=== PATIENT | female | born 1960 | race Caucasian/White ===

== ENCOUNTER 2019-06-30 18:00 | Emergency (ER) | payer BC ==
[2019-06-30] MEDS ORDERED: Acetaminophen 500 MG Tab PO ONE (18:29)
[2019-06-30 18:35] VITALS: BP 170/81; PULSE 71
--- NOTE | 2019-06-30 18:35 | EDM.PDOC ---
ED HPI GENERAL MEDICAL PROBLEM - General Chief Complaint: Upper Extremity Injury/Pain Stated Complaint: LEFT ARM INJURY Time Seen by Provider: 06/30/19 18:25 Source of Information: Reports: Patient, Old Records History Limitations: Reports: No Limitations - History of Present Illness INITIAL COMMENTS - FREE TEXT/NARRATIVE: 58 yo female fell just before arrival in her home and hit her L lateral forearm on an open cupboard door. Has pain at the site of impact. Here for eval. No tx prior to arrival. No other injuries. Onset: Today Onset Date: 06/30/19 Onset Time: 17:30 Duration: Hour(s): (1), Constant Location: Reports: Upper Extremity, Left Quality: Reports: Dull Severity: Mild Improves with: Reports: Rest Worsens with: Reports: Movement Context: Reports: Trauma Associated Symptoms: Reports: No Other Symptoms Treatments [employer] ASSOCIATE: Reports: Other (see below) (none) - Related Data Allergies Allergy/AdvReac Type Severity Reaction Status Date / Time diphenhydramine HCl Allergy Swelling Verified 06/30/19 18:27 [From Benadryl] Home Meds: Home Meds Aspirin [Ecotrin EC] 81 mg PO DAILY 01/08/16 [History] Citalopram [Citalopram HBr] 20 mg PO DAILY 01/08/16 [History] Past Medical History HEENT History: Reports: Other (See Below) Other HEENT History: Very bad dentation Cardiovascular History: Reports: Hypertension Musculoskeletal History: Reports: Other (See Below) Other Musculoskeletal History: carpal tunnel bilateral, no surgery yet Psychiatric History: Reports: Depression - Past Surgical History HEENT Surgical History: Reports: Eye Surgery Review of Systems - Review of Systems Review Of Systems: See Below Constitutional: Reports: No Symptoms Skin: Reports: Bruising (L lateral forearm) Neurological: Reports: No Symptoms ED EXAM, GENERAL - Physical Exam Exam: See Below Exam Limited By: No Limitations General Appearance: Alert, WD/WN, No Apparent Distress Extremities: Arm Pain (at site of impact, mid forearm, left) Neurological: Alert, Oriented, CN II-XII Intact, Normal Cognition, No Motor/ Sensory Deficits Psychiatric: Normal Affect, Normal Mood Skin Exam: Warm, Dry, Intact, No Rash, Ecchymosis (small area L mid forearm, laterally) Course - Vital Signs Last Recorded V/S: Last Vital Signs Temp 36.3 C 06/30/19 18:32 Pulse 71 06/30/19 18:32 Resp 14 06/30/19 18:32 BP 170/81 H 06/30/19 18:32 Pulse Ox 98 06/30/19 18:32 - Orders/Labs/Meds Orders: Active Orders 24 hr Category Date Time Status Forearm 2V Lt [CR] Stat Exams 06/30/19 18:29 Ordered Meds: Medications Discontinued Medications Generic Name Dose Route Start Last Admin Trade Name Ximena PRN Reason Stop Dose Admin Acetaminophen 1,000 mg 06/30/19 18:29 06/30/19 18:38 Tylenol Extra Strength PO 06/30/19 18:30 1,000 mg ONETIME ONE Administration - Radiology Interpretation Free Text/Narrative:: L forearm X-ray-neg Departure - Departure Time of Disposition: 18:45 Disposition: Home, Self-Care 01 Condition: Good Clinical Impression: Contusion of forearm, left Qualifiers: Encounter type: initial encounter Qualified Code(s): S50.12XA - Contusion of left forearm, initial encounter - Discharge Information *PRESCRIPTION DRUG MONITORING PROGRAM REVIEWED*: No *COPY OF PRESCRIPTION DRUG MONITORING REPORT IN PATIENT HAWK: No Instructions: Contusion, [id number] Referrals: Tasia Hicks PA [Primary Care Provider] - Forms: ED Department Discharge Additional Instructions: Ibuprofen and/or acetaminophen as needed for pain relief. Ice to area tonight. Recheck as needed. - My Orders Last 24 Hours: My Active Orders 06/30/19 18:29 Forearm 2V Lt [CR] Stat - Assessment/Plan Last 24 Hours: My Active Orders 06/30/19 18:29 Forearm 2V Lt [CR] Stat
--- NOTE | 2019-06-30 18:55 | CRLCR ---
Indication: Fell into cupboard at home. Technique: Left forearm 2 views. Comparison: None. Findings: Bones: Osteopenia without evidence of fracture. Joint spaces: Unremarkable. Soft tissues: Mild dorsal soft tissue swelling. Impression: Mild dorsal soft tissue swelling without evidence of fracture. Osteopenia. Dictated by Jerry Owusu MD @ Jun 30 2019 6:51PM Signed by Dr. Jerry Owusu @ Jun 30 2019 6:52PM
== END 2019-06-30 19:18 | disposition home or self-care (01) ==
LOC: JP.ED 18:00
DX: S50.12XA Contusion of left forearm, initial encounter (principal); I10 Essential (primary) hypertension; F41.9 Anxiety disorder, unspecified; Z79.82 Long term (current) use of aspirin; Z79.899 Other long term (current) drug therapy; W01.190A Fall on same level from slipping, tripping and stumbling with subsequent striking against furniture, initial encounter; Y92.009 Unspecified place in unspecified non-institutional (private) residence as the place of occurrence of the external cause
CPT/HCPCS: 73090; 99283; A9270

== ENCOUNTER 2020-08-26 18:29 | Emergency (ER) | payer OTHER ==
[2020-08-26 19:07] VITALS: BP 157/77; PULSE 73
--- NOTE | 2020-08-26 19:11 | EDM.PDOC ---
ED HPI GENERAL MEDICAL PROBLEM - General Chief Complaint: Headache Stated Complaint: COVID SYMPTOMS Time Seen by Provider: 08/26/20 18:43 Source of Information: Reports: Patient History Limitations: Reports: No Limitations - History of Present Illness INITIAL COMMENTS - FREE TEXT/NARRATIVE: Jeannie is a 59-year-old female presenting to the ED for evaluation of Covid-like symptoms including nasal congestion, intermittent loss of taste or smell, headache and body aches. Patient symptoms started about 3 weeks ago and have been intermittent with the headache occurring daily. She reports having some mild nasal congestion but denies any cough, shortness of breath, fever but does have chills, nausea, vomiting, or diarrhea. Patient denies any sore throat as well. There are multiple family members in the same household that have been positive for COVID-19 over the last several days. The patient does take medications for anxiety as well as osteoarthritis. She denies any new medications. - Related Data Allergies Allergy/AdvReac Type Severity Reaction Status Date / Time diphenhydramine HCl Allergy Swelling Verified 06/30/19 18:27 [From Benadryl] Home Meds: Home Meds Aspirin [Ecotrin EC] 81 mg PO DAILY 01/08/16 [History] Citalopram [Citalopram HBr] 20 mg PO DAILY 01/08/16 [History] busPIRone [Buspar] 10 mg PO BID 08/26/20 [History] Past Medical History HEENT History: Reports: Other (See Below) Other HEENT History: Very bad dentation Cardiovascular History: Reports: Hypertension Musculoskeletal History: Reports: Other (See Below) Other Musculoskeletal History: carpal tunnel bilateral, no surgery yet Psychiatric History: Reports: Depression - Past Surgical History HEENT Surgical History: Reports: Eye Surgery ED ROS GENERAL - Review of Systems Review Of Systems: See Below Constitutional: Reports: Chills, Malaise, Fatigue. Denies: Decreased Appetite HEENT: Reports: Other (Intermittent loss of taste and smell. Minor nasal congestion.). Denies: Throat Pain, Throat Swelling Respiratory: Reports: No Symptoms Cardiovascular: Reports: No Symptoms Endocrine: Reports: No Symptoms GI/Abdominal: Reports: No Symptoms. Denies: Abdominal Pain, Diarrhea, Nausea, Vomiting : Reports: No Symptoms Musculoskeletal: Reports: Other (Body aches) Skin: Reports: No Symptoms Neurological: Reports: Headache Psychiatric: Reports: No Symptoms Hematologic/Lymphatic: Reports: No Symptoms Immunologic: Reports: No Symptoms ED EXAM, GENERAL - Physical Exam Exam: See Below Exam Limited By: No Limitations General Appearance: Alert, No Apparent Distress Eye Exam: Bilateral Eye: EOMI, PERRL Throat/Mouth: Normal Inspection, Normal Lips, Normal Oropharynx, Normal Voice, No Airway Compromise. No: Dysphagia, Inflammation Head: Atraumatic, Normocephalic Neck: Normal Inspection, Supple, Non-Tender, Full Range of Motion. No: Lymphadenopathy (R), Lymphadenopathy (L) Respiratory/Chest: No Respiratory Distress, Lungs Clear, Normal Breath Sounds, Chest Non-Tender Cardiovascular: Normal Peripheral Pulses, Regular Rate, Rhythm, No Edema, No Murmur Peripheral Pulses: 2+: Radial (L), Radial (R) GI/Abdominal: Normal Bowel Sounds, Soft, Non-Tender, No Distention Back Exam: Normal Inspection, Full Range of Motion Extremities: Normal Inspection, Normal Range of Motion, No Pedal Edema Neurological: Alert, Oriented, Normal Cognition, No Motor/Sensory Deficits Psychiatric: Normal Affect, Normal Mood Skin Exam: Warm, Dry, Intact, Normal Color, No Rash Lymphatic: No Adenopathy Course - Vital Signs Last Recorded V/S: Last Vital Signs Temp 36.7 C 08/26/20 19:05 Pulse 73 08/26/20 19:05 Resp 16 08/26/20 19:05 BP 157/77 H 08/26/20 19:05 Pulse Ox 96 08/26/20 19:05 - Orders/Labs/Meds Labs: Laboratory Tests 08/26/20 Range/Units 18:43 Influenza Type A RNA Negative (NEGATIVE) Influenza Type B RNA Negative (NEGATIVE) RSV Rapid Negative (NEGATIVE) SARS-CoV-2 RNA (ANDRIY) Positive H (NEGATIVE) Departure - Departure Time of Disposition: 20:43 Disposition: Home, Self-Care 01 Condition: Good Clinical Impression: COVID-19 - Discharge Information *PRESCRIPTION DRUG MONITORING PROGRAM REVIEWED*: Not Applicable *COPY OF PRESCRIPTION DRUG MONITORING REPORT IN PATIENT HAWK: Not Applicable Instructions: COVID-19, COVID-19 Frequently Asked Questions, COVID-19: How to Protect Yourself and Others - [facility] Referrals: PCP,None [Primary Care Provider] - Forms: ED Department Discharge Care Plan Goals: You have tested positive for COVID-19. He may need to go home and self quarantine as to not spread this highly contagious virus throughout the community. You may take Tylenol or ibuprofen for headache and pain control. I encourage you to drink plenty of fluids to prevent dehydration. Rest is also important for recovery. We will send you home with a prescription for Zofran that she may take for nausea should you develop any significant nausea. As your symptoms are mild at this time, I do not believe the use of the multi Valent antibody therapy would be beneficial. If you develop significant shortness of breath please return to the ED for reevaluation. Sepsis Event Note (ED) - Focused Exam Vital Signs: Vital Signs Temp Pulse Resp BP Pulse Ox 08/26/20 19:05 36.7 C 73 16 157/77 H 96 - Problem List & Annotations (1) COVID-19 SNOMED Code(s): 224077238 Code(s): U07.1 - COVID-19 Status: Acute Priority: Medium Current Visit: Yes - Problem List Review Problem List Initiated/Reviewed/Updated: Yes
[2020-08-26 19:56] LABS: CORONAVIRUS COVID-19 NAA POSITIVE (NEGATIVE)
== END 2020-08-26 21:20 | disposition home or self-care (01) ==
LOC: JP.ED 18:29
DX: U07.1 COVID-19 (principal); I10 Essential (primary) hypertension; F32.9 Major depressive disorder, single episode, unspecified; Z88.8 Allergy status to other drugs, medicaments and biological substances; Z79.82 Long term (current) use of aspirin; Z79.899 Other long term (current) drug therapy
CPT/HCPCS: 0241U; 99283

== ENCOUNTER 2020-09-05 14:28 | Emergency (ER) | payer OTHER ==
[2020-09-05 15:21] VITALS: BP 92/53; PULSE 64
--- NOTE | 2020-09-05 16:33 | EDM.PDOC ---
ED HPI GENERAL MEDICAL PROBLEM - General Chief Complaint: Respiratory Problem Stated Complaint: DEHYDRATED, LIGHTHEADED, WEAK Time Seen by Provider: 09/05/20 16:15 Source of Information: Reports: Patient, Old Records, RN History Limitations: Reports: No Limitations - History of Present Illness INITIAL COMMENTS - FREE TEXT/NARRATIVE: 59 yo female was dx in the clinic about 10 days ago with Covid after being ill for a few days before that. She comes to the ER today after phoning the clinic and being told to come to the ER. She reports mainly fatigue, weakness, and wanting to sleep a lot. Wonders about dehydration. Not febrile or SOB. Lives with her . No pain. Onset: Gradual Duration: Day(s):, Constant Location: Reports: Generalized Quality: Reports: Other (no pain) Severity: Moderate Improves with: Reports: None Worsens with: Reports: Other (unsure) Context: Reports: Other (see HPI) Associated Symptoms: Reports: Malaise, Weakness. Denies: Cough, Diaphoresis, Fever/Chills, Nausea/Vomiting, Shortness of Breath Treatments CA[employer] FAT P[employer]ER: Reports: Other (see below) (none) - Related Data Allergies Allergy/AdvReac Type Severity Reaction Status Date / Time diphenhydramine HCl Allergy Swelling Verified 09/05/20 15:47 [From Benadryl] Home Meds: Home Meds Aspirin [Ecotrin EC] 81 mg PO DAILY 01/08/16 [History] Citalopram [Citalopram HBr] 20 mg PO DAILY 01/08/16 [History] busPIRone [Buspar] 10 mg PO BID 08/26/20 [History] Past Medical History HEENT History: Reports: Other (See Below) Other HEENT History: Very bad dentation Cardiovascular History: Reports: Hypertension Musculoskeletal History: Reports: Other (See Below) Other Musculoskeletal History: carpal tunnel bilateral, no surgery yet Psychiatric History: Reports: Depression - Infectious Disease History Infectious Disease History: Reports: Chicken Pox - Past Surgical History HEENT Surgical History: Reports: Eye Surgery Social & Family History - Tobacco Use Tobacco Use Status *Q: Never Tobacco User - Caffeine Use Caffeine Use: Reports: Soda - Recreational Drug Use Recreational Drug Use: No ED ROS GENERAL - Review of Systems Review Of Systems: See Below Constitutional: Reports: Malaise, Weakness HEENT: Reports: No Symptoms Respiratory: Reports: No Symptoms Cardiovascular: Reports: No Symptoms GI/Abdominal: Reports: No Symptoms : Reports: No Symptoms Musculoskeletal: Reports: No Symptoms Skin: Reports: No Symptoms Neurological: Reports: No Symptoms Psychiatric: Reports: No Symptoms ED EXAM, GENERAL - Physical Exam Exam: See Below Exam Limited By: No Limitations General Appearance: Alert, WD/WN, No Apparent Distress Eye Exam: Bilateral Eye: Normal Inspection Ears: Normal External Exam, Normal Canal, Hearing Grossly Normal, Normal TMs Ear Exam: Bilateral Ear: Auricle Normal, Canal Normal, TM normal Nose: Normal Inspection, No Blood Throat/Mouth: Normal Inspection, Normal Lips, Normal Oropharynx, Normal Voice, No Airway Compromise Head: Atraumatic, Normocephalic Neck: Normal Inspection Respiratory/Chest: No Respiratory Distress, Lungs Clear, Normal Breath Sounds, No Accessory Muscle Use Cardiovascular: Regular Rate, Rhythm, No Edema GI/Abdominal: Normal Bowel Sounds, Soft, Non-Tender, No Distention Back Exam: Normal Inspection. No: CVA Tenderness (R), CVA Tenderness (L) Extremities: Normal Inspection, Normal Range of Motion, Non-Tender, No Pedal Edema Neurological: Alert, Oriented, CN II-XII Intact, Normal Cognition, No Motor/Sensory Deficits Psychiatric: Normal Affect, Normal Mood Skin Exam: Warm, Dry, Intact, Normal Color, No Rash Course - Vital Signs Last Recorded V/S: Last Vital Signs Temp 36.6 C 09/05/20 15:35 Pulse 64 09/05/20 15:35 Resp 16 09/05/20 15:35 BP 92/53 L 09/05/20 15:35 Pulse Ox 100 09/05/20 15:35 - Orders/Labs/Meds Labs: Laboratory Tests 09/05/20 09/05/20 09/05/20 Range/Units 15:51 16:36 16:36 WBC 7.1 (4.5-11.0) K/uL RBC 4.38 (3.30-5.50) M/uL Hgb 12.7 (12.0-15.0) g/dL Hct 40.9 (36.0-48.0) % MCV 93 (80-98) fL MCH 29 (27-31) pg MCHC 31 L (32-36) % Plt Count 359 (150-400) K/uL Sodium 142 (140-148) mmol/L Potassium 3.8 (3.6-5.2) mmol/L Chloride 104 (100-108) mmol/L Carbon Dioxide 28 (21-32) mmol/L Anion Gap 10.0 (5.0-14.0) mmol/L BUN 15 (7-18) mg/dL Creatinine 1.0 (0.6-1.0) mg/dL Est Cr Clr Drug Dosing 46.27 mL/min Estimated GFR (MDRD) 57 L (>60) Glucose 93 (74-106) mg/dL Calcium 9.2 (8.5-10.1) mg/dL Troponin I < 0.017 (0.000-0.056) ng/mL Urine Color Yellow (YELLOW) Urine Appearance Slightly cloudy A (CLEAR) Urine pH 5.0 (5.0-8.0) Ur Specific [place] 1.020 (1.008-1.030) Urine Protein 30 H (NEGATIVE) mg/dL Urine Glucose (UA) Negative (NEGATIVE) mg/dL Urine Ketones Trace H (NEGATIVE) mg/dL Urine Occult Blood Negative (NEGATIVE) Urine Nitrite Negative (NEGATIVE) Urine Bilirubin Moderate H (NEGATIVE) Urine Urobilinogen >=8.0 H (0.2-1.0) EU/dL Ur Leukocyte Esterase Negative (NEGATIVE) Urine RBC 5-10 H (0-5) Urine WBC 0-5 (0-5) Ur Epithelial Cells Moderate Amorphous Sediment Not seen Urine Bacteria Many Urine Mucus Few Departure - Departure Time of Disposition: 17:24 Disposition: Home, Self-Care 01 Condition: Fair Clinical Impression: Post-COVID syndrome - Discharge Information *PRESCRIPTION DRUG MONITORING PROGRAM REVIEWED*: Not Applicable *COPY OF PRESCRIPTION DRUG MONITORING REPORT IN PATIENT HAWK: Not Applicable Referrals: Tasia Hicks PA [Primary Care Provider] - Forms: ED Department Discharge Additional Instructions: Drink enough fluids so that your urine is light yellow in color. F/U with your provider as needed. Sepsis Event Note (ED) - Evaluation Sepsis Screening Result: No Definite Risk - Focused Exam Vital Signs: Vital Signs Temp Pulse Resp BP Pulse Ox 09/05/20 15:35 36.6 C 64 16 92/53 L 100 09/05/20 15:20 36.6 C 64 16 92/53 L 100
== END 2020-09-05 17:36 | disposition home or self-care (01) ==
LOC: JP.ED 14:28
DX: R53.1 Weakness (principal); R53.81 Other malaise; Z86.16 Personal history of COVID-19; I10 Essential (primary) hypertension; Z88.8 Allergy status to other drugs, medicaments and biological substances; Z79.899 Other long term (current) drug therapy
CPT/HCPCS: 36415; 80048; 81001; 84484; 85027; 99282; 99284

== ENCOUNTER 2022-06-05 09:12 | Emergency (ER) | payer MEDICAID ==
[2022-06-05] MEDS ORDERED: Meclizine 25 MG Tab PO ONE (10:34)
[2022-06-05 12:19] VITALS: BP 151/68; PULSE 90
[2022-06-05] MEDS ORDERED: Acetaminophen 500 MG Tab PO ONE (12:37)
== END 2022-06-05 13:10 | disposition home or self-care (01) ==
LOC: JP.ED 09:12
DX: I67.9 Cerebrovascular disease, unspecified (principal); H81.10 Benign paroxysmal vertigo, unspecified ear; G93.89 Other specified disorders of brain; I10 Essential (primary) hypertension; F41.9 Anxiety disorder, unspecified; F32.A Depression, unspecified; Z20.822 Contact with and (suspected) exposure to COVID-19; Z88.8 Allergy status to other drugs, medicaments and biological substances; Z79.899 Other long term (current) drug therapy
CPT/HCPCS: 36415; 70450; 80048; 85025; 87635; 99284; A9270; U0002

== ENCOUNTER 2023-04-04 07:51 | Day surgery (SDC) | payer MEDICAID ==
[~2023-04-04 07:51] MED LIST: Bupivacaine 0.5% 50 ML MDV ONE; Bupivacaine 0.5%/EPINEPHrine 1:200,000 50 ML MDV ONE; Lidocaine 1% with EPINEPHrine 1:100,000 50 ML MDV ONE
[2023-04-04] MEDS ORDERED: Acetaminophen 500 MG Tab PO ONE (08:30)
[2023-04-04] MEDS: Lactated Ringers 1,000 ML IV SCH ×2 (08:54→20:09)
[2023-04-04] MEDS ORDERED: Propofol 200 MG/20 ML SDV ONE (09:07)
[2023-04-04] MEDS ORDERED: Ondansetron 4 MG/2 ML SDV ONE (09:07)
[2023-04-04] MEDS ORDERED: Dexamethasone 4 MG/ML SDV ONE (09:07)
[2023-04-04] MEDS ORDERED: Neostigmine Methylsulfate 1 MG/ML 5 ML Syringe ONE (09:07)
[2023-04-04] MEDS ORDERED: Glycopyrrolate 0.2 MG/ML 5 ML MDV ONE (09:07)
[2023-04-04] MEDS ORDERED: Rocuronium 50 MG/5 ML Vial ONE (09:07)
[2023-04-04] MEDS ORDERED: fentaNYL 250 MCG/5 ML SDV ONE (09:08)
[2023-04-04] MEDS ORDERED: methylPREDNISolone Sodium Succinate 125 MG/2 ML SDV IVPUSH ONE (09:41)
[2023-04-04] MEDS ORDERED: ceFAZolin 2 GM in Premix Bag 1 BAG IV ONE (10:00)
[2023-04-04 10:07] LABS: CALCIUM 8.6 mg/dL (8.5-10.1); CREATININE 0.8 mg/dL (0.6-1.0); EST CRCL DRUG DOSING (CG) 53.04 mL/min; POTASSIUM,K 3.6 mmol/L (3.6-5.2)
[2023-04-04 10:08] LABS: ANION GAP 6.6 mmol/L (5.0-14.0)
[2023-04-04] MEDS ORDERED: Lactated Ringers 1,000 ML ONE (12:32)
[2023-04-04] MEDS ORDERED: fentaNYL 100 MCG/2 ML SDV ONE (13:15)
[2023-04-04] MEDS ORDERED: Sennosides/Docusate Sodium 50-8.6 MG Tab PO PRN (14:04)
[2023-04-04] MEDS ORDERED: Acetaminophen/HYDROcodone 325-10 MG Tab PO PRN (14:04)
[2023-04-04] MEDS ORDERED: Ondansetron 4 MG Tab.DIS PO PRN (14:08)
[2023-04-04] MEDS: busPIRone 10 MG Tab PO SCH (20:06)
[2023-04-05 04:55] LABS: HEMATOCRIT 35.2 % (34.3-46.0); HEMOGLOBIN 11.8 g/dL (11.2-15.5); MEAN CORPUSCULAR HGB CONC 33.5 g/dL (31.6-35.5); MEAN CORPUSCULAR VOLUME 92.4 fL (81.4-99.0); RED BLOOD CELL COUNT 3.81 M/uL (3.77-5.24); WHITE BLOOD CELL COUNT,WBC 16.3 K/uL (3.2-11.0)
[2023-04-05 05:21] LABS: A/G RATIO 0.8 (1.2-2.2); ALANINE AMINOTRANSFERASE,ALT 21 U/L (12-78); ALBUMIN 2.8 g/dL (3.4-5.0); ALKALINE PHOSPHATASE 63 U/L (46-116); ANION GAP 6.2 mmol/L (5.0-14.0); ASPARTATE AMNIOTRANSFERASE,AST 20 U/L (15-37); BILIRUBIN TOTAL 0.5 mg/dL (0.2-1.0); BLOOD UREA NITROGEN,BUN 12 mg/dL (7-18); CALCIUM 8.6 mg/dL (8.5-10.1); CARBON DIOXIDE,CO2 30 mmol/L (21-32); CHLORIDE,CL 104 mmol/L (100-108); CREATININE 0.9 mg/dL (0.6-1.0); EST CRCL DRUG DOSING (CG) 47.15 mL/min; ESTIMATED GFR 73 mL/min (>60); GLUCOSE RANDOM 146 mg/dL (74-106); PROTEIN TOTAL,TP 6.4 g/dL (6.4-8.2); SODIUM,NA 140 mmol/L (140-148)
[2023-04-05 05:31] VITALS: BP 118/52; PULSE 82
[2023-04-05] MEDS ORDERED: predniSONE 20 MG Tab PO SCH (08:00)
[2023-04-05] MEDS: busPIRone 10 MG Tab PO SCH (08:13)
[2023-04-05] MEDS ORDERED: Hydrochlorothiazide 12.5 MG Cap PO SCH (09:00)
[2023-04-05] MEDS ORDERED: Citalopram 20 MG Tab PO SCH (09:00)
== END 2023-04-05 10:15 | disposition home or self-care (01) ==
LOC: JP.SDS 07:51 → JP.MS 14:04 → JP.SDS 04-05 10:15
PROVIDERS: ATTEND Student in an Organized Health Care Education/Training Program
DX: C50.412 Malignant neoplasm of upper-outer quadrant of left female breast (principal); I10 Essential (primary) hypertension; F41.1 Generalized anxiety disorder; F33.9 Major depressive disorder, recurrent, unspecified; Z86.73 Personal history of transient ischemic attack (TIA), and cerebral infarction without residual deficits; Z17.1 Estrogen receptor negative status [ER-]; Z79.82 Long term (current) use of aspirin; Z79.899 Other long term (current) drug therapy; Z20.822 Contact with and (suspected) exposure to COVID-19; Z88.8 Allergy status to other drugs, medicaments and biological substances
CPT/HCPCS: 19301; 36415; 38525; 38900; 76098; 76642; 78195; 80048; 80053; 85027; 87635; A9270; A9541; J1100; J2405; J2704; J2710; J2930; J3010; J3490; J7120; J7512; 88307; 88341; 88342; 88360; U0002

== ENCOUNTER 2023-04-28 05:46 | Day surgery (SDC) | payer MEDICAID ==
[2023-04-28] MEDS ORDERED: Bupivacaine 0.5% 50 ML MDV ONE ×2 (06:35→08:38)
[2023-04-28] MEDS ORDERED: Lidocaine 1% with EPINEPHrine 1:100,000 50 ML MDV ONE (06:36)
[2023-04-28] MEDS ORDERED: Acetaminophen 500 MG Tab PO ONE (06:45)
[2023-04-28] MEDS ORDERED: Lactated Ringers 1,000 ML IV SCH (07:00)
[2023-04-28] MEDS ORDERED: fentaNYL 250 MCG/5 ML SDV ONE (07:29)
[2023-04-28] MEDS ORDERED: ceFAZolin 2 GM in Premix Bag 1 BAG IV ONE (07:30)
[2023-04-28] MEDS ORDERED: Propofol 200 MG/20 ML SDV ONE (07:30)
[2023-04-28] MEDS ORDERED: Glycopyrrolate 0.2 MG/ML 5 ML MDV ONE (07:30)
[2023-04-28] MEDS ORDERED: Neostigmine Methylsulfate 1 MG/ML 5 ML Syringe ONE (07:30)
[2023-04-28] MEDS ORDERED: Dexamethasone 4 MG/ML SDV ONE (07:30)
[2023-04-28] MEDS ORDERED: Ondansetron 4 MG/2 ML SDV ONE (07:30)
[2023-04-28] MEDS ORDERED: Rocuronium 50 MG/5 ML Vial ONE (07:30)
[2023-04-28 10:32] VITALS: BP 123/58; PULSE 66
== END 2023-04-28 11:08 | disposition home or self-care (01) ==
LOC: JP.SDS 05:46
PROVIDERS: ATTEND Student in an Organized Health Care Education/Training Program
DX: C50.912 Malignant neoplasm of unspecified site of left female breast (principal); I10 Essential (primary) hypertension; F41.9 Anxiety disorder, unspecified; F32.A Depression, unspecified; Z79.899 Other long term (current) drug therapy; Z98.890 Other specified postprocedural states; Z86.73 Personal history of transient ischemic attack (TIA), and cerebral infarction without residual deficits; Z88.8 Allergy status to other drugs, medicaments and biological substances
CPT/HCPCS: 19301; 36415; 84132; 88307; 88341; 88342; A9270; J0690; J1100; J2405; J2704; J2710; J3010; J3490; J7120

== ENCOUNTER 2023-05-27 07:29 | Day surgery (SDC) | payer MEDICAID, MEDICARE ==
[~2023-05-27 07:29] MED LIST changes: +Acetaminophen 500 MG Tab PO ONE; -Bupivacaine 0.5%/EPINEPHrine 1:200,000 50 ML MDV ONE; +Lactated Ringers 1,000 ML IV SCH
[2023-05-27] MEDS ORDERED: ceFAZolin 2 GM in Premix Bag 1 BAG IV ONE (07:30)
[2023-05-27] MEDS ORDERED: fentaNYL 100 MCG/2 ML SDV ONE (08:12)
[2023-05-27] MEDS ORDERED: Midazolam 1 MG/ML 2 ML SDV ONE (08:12)
[2023-05-27] MEDS ORDERED: Propofol 200 MG/20 ML SDV ONE (08:12)
[2023-05-27 11:20] VITALS: BP 147/81; PULSE 72
== END 2023-05-27 11:40 | disposition home or self-care (01) ==
LOC: JP.SDS 07:29
PROVIDERS: ATTEND Student in an Organized Health Care Education/Training Program
DX: C50.912 Malignant neoplasm of unspecified site of left female breast (principal); I10 Essential (primary) hypertension; F41.1 Generalized anxiety disorder; F32.A Depression, unspecified; Z86.73 Personal history of transient ischemic attack (TIA), and cerebral infarction without residual deficits; Z88.8 Allergy status to other drugs, medicaments and biological substances
CPT/HCPCS: 36561; 77001; A9270; C1788; J1642; J2250; J2704; J3010; J3490; J7120

== ENCOUNTER 2023-08-13 18:20 | Emergency (ER) | payer MEDICAID, MEDICARE ==
[2023-08-13] MEDS ORDERED: Alum Hydrox/Mag Hydrox/Simeth 15 ML, Lidocaine 2% 15 ML PO ONE ×2 (20:39)
[2023-08-13 21:04] VITALS: BP 88/59; PULSE 103
[2023-08-13] MEDS ORDERED: Lidocaine 2% Viscous Solution 15 ML UD ONE (21:26)
== END 2023-08-13 21:52 | disposition home or self-care (01) ==
LOC: JP.ED 18:20
DX: K13.79 Other lesions of oral mucosa (principal); T45.1X5A Adverse effect of antineoplastic and immunosuppressive drugs, initial encounter; I10 Essential (primary) hypertension; Z88.8 Allergy status to other drugs, medicaments and biological substances; Z79.82 Long term (current) use of aspirin; Z79.899 Other long term (current) drug therapy
CPT/HCPCS: 87220; 87651; 99283; A9270

== ENCOUNTER 2023-10-27 14:15 | Inpatient (IN) | payer MEDICAID, MEDICARE ==
[2023-10-27] MEDS: Sodium Chloride 0.9% 1,000 ML IV ONE (16:27)
[2023-10-27] MEDS: Cefepime 2 GM in Sodium Chloride 0.9% 50 ML IV ONE (16:27)
[2023-10-27 16:32] LABS: HEMATOCRIT 28.4 % (34.3-46.0); HEMOGLOBIN 9.5 g/dL (11.2-15.5); MEAN CORPUSCULAR HEMOGLOBIN 32.9 pg (31.6-35.5); MEAN CORPUSCULAR HGB CONC 33.5 g/dL (31.6-35.5); MEAN CORPUSCULAR VOLUME 98.3 fL (81.4-99.0); PLATELET COUNT,PLT 133 K/uL (130-375); RED BLOOD CELL COUNT 2.89 M/uL (3.77-5.24); WHITE BLOOD CELL COUNT,WBC 2.9 K/uL (3.2-11.0)
[2023-10-27 16:50] LABS: ALANINE AMINOTRANSFERASE,ALT 26 U/L (12-78); ALBUMIN 3.5 g/dL (3.4-5.0); ALKALINE PHOSPHATASE 89 U/L (46-116); ASPARTATE AMNIOTRANSFERASE,AST 27 U/L (15-37); BILIRUBIN TOTAL 0.8 mg/dL (0.2-1.0); BLOOD UREA NITROGEN,BUN 5 mg/dL (7-18); CARBON DIOXIDE,CO2 28 mmol/L (21-32); CHLORIDE,CL 102 mmol/L (100-108); CREATININE 0.9 mg/dL (0.6-1.0); EST CRCL DRUG DOSING (CG) 47.15 mL/min; ESTIMATED GFR 73 mL/min (>60); GLUCOSE RANDOM 83 mg/dL (74-106); POTASSIUM,K 3.4 mmol/L (3.6-5.2); SODIUM,NA 139 mmol/L (140-148)
[2023-10-27 16:51] LABS: ANION GAP 12.4 mmol/L (5.0-14.0)
[2023-10-27 16:57] LABS: APPEARANCE,URINE SLIGHTLY CLOUDY (CLEAR); BILIRUBIN,URINE NEGATIVE (NEGATIVE); COLOR,URINE YELLOW (YELLOW); GLUCOSE,URINE NEGATIVE (NEGATIVE); KETONES,URINE NEGATIVE (NEGATIVE); LEUKOCYTE ESTERASE,URINE TRACE (NEGATIVE); NITRITE,URINE NEGATIVE (NEGATIVE); OCCULT BLOOD,URINE NEGATIVE (NEGATIVE); PROTEIN,URINE NEGATIVE (NEGATIVE)
[2023-10-27 17:01] LABS: BAND ABSOLUTE MAN 0.03 K/uL; BAND PERCENT MAN 1 % (5-11); EOSINOPHILS ABSOLUTE MAN 0.03 K/uL (0.00-0.40); EOSINOPHILS PERCENT MAN 1 % (2-4); LYMPHOCYTES ABSOLUTE MAN 1.83 K/uL (0.8-3.3); LYMPHOCYTES PERCENT MAN 63 % (24-44); METAMYELOCYTE PERCENT MAN 7 %; MONOCYTES ABSOLUTE MAN 0.29 K/uL (0.20-0.90); MONOCYTES PERCENT MAN 10 % (2-6); MYELOCYTE ABSOLUTE MAN 0.03; MYELOCYTE PERCENT MAN 1 %; NEUTROPHILS ABSOLUTE MAN 0.49 K/uL (1.0-7.6); SEG NEUTROPHILS PERCENT MAN 17 % (36-66)
[2023-10-27 17:01] LABS: RBC,URINE 0-5 (0-5)
[2023-10-27 17:02] LABS: ATYPICAL LYMPHOCYTES FEW
[2023-10-27 17:02] LABS: AMORPHOUS SEDIMENT,URINE NOT SEEN; BACTERIA,URINE MANY; EPITHELIAL CELLS,URINE MANY; MUCUS,URINE NOT SEEN
[2023-10-27 17:15] LABS: CORONAVIRUS COVID-19 NAA NEGATIVE (NEGATIVE); INFLUENZA A NAA NEGATIVE (NEGATIVE); INFLUENZA B NAA NEGATIVE (NEGATIVE); RESPIRATORY SYNCYTIAL VIR NAA NEGATIVE (NEGATIVE)
[2023-10-27] MEDS: Sodium Chloride 0.9% 10 ML Syringe FLUSH PRN (17:30)
[2023-10-27] MEDS: Acetaminophen 500 MG Tab PO ONE (18:03)
[2023-10-27] MEDS ORDERED: Polyethylene Glycol 3350 Powder 17 GM Packet PO PRN (18:57)
[2023-10-27] MEDS ORDERED: Ondansetron 4 MG/2 ML SDV IV PRN (18:57)
[2023-10-27] MEDS ORDERED: Magnesium Hydroxide 400 MG/5 ML Susp 30 ML Cup PO PRN (18:57)
[2023-10-27] MEDS ORDERED: Ondansetron 4 MG Tab.DIS PO PRN (18:57)
[2023-10-27] MEDS ORDERED: Sennosides 8.6 MG Tab PO PRN (18:57)
[2023-10-27] MEDS ORDERED: Sennosides/Docusate Sodium 50-8.6 MG Tab PO PRN (18:57)
[2023-10-27] MEDS: Potassium Chloride 20 MEQ Tab.ER PO ONE (19:16)
[2023-10-27] MEDS: Lactobacillus Rhamnosus GG (Probiotic) Cap PO SCH (20:37)
[2023-10-27] MEDS: busPIRone 10 MG Tab PO SCH (20:37)
[2023-10-27] MEDS: Melatonin 3 MG Tab PO PRN (20:38)
[2023-10-28] MEDS ORDERED: Cefepime 2 GM in Sodium Chloride 0.9% 50 ML IV SCH (00:01)
[2023-10-28 05:25] LABS: HEMATOCRIT 28.2 % (34.3-46.0); HEMOGLOBIN 9.2 g/dL (11.2-15.5); MEAN CORPUSCULAR HEMOGLOBIN 32.2 pg (31.6-35.5); MEAN CORPUSCULAR HGB CONC 32.6 g/dL (31.6-35.5); MEAN CORPUSCULAR VOLUME 98.6 fL (81.4-99.0); PLATELET COUNT,PLT 120 K/uL (130-375); RED BLOOD CELL COUNT 2.86 M/uL (3.77-5.24); WHITE BLOOD CELL COUNT,WBC 5.8 K/uL (3.2-11.0)
[2023-10-28] MEDS: Cefepime 2 GM in Sodium Chloride 0.9% 50 ML IV SCH (05:30)
[2023-10-28 05:49] LABS: CALCIUM 8.6 mg/dL (8.5-10.1); CREATININE 0.8 mg/dL (0.6-1.0); EST CRCL DRUG DOSING (CG) 53.04 mL/min; POTASSIUM,K 3.9 mmol/L (3.6-5.2)
[2023-10-28 06:06] LABS: ANION GAP 13.9 mmol/L (5.0-14.0)
[2023-10-28 06:26] LABS: BAND ABSOLUTE MAN 0.93 K/uL; BAND PERCENT MAN 16 % (5-11); EOSINOPHILS ABSOLUTE MAN 0.06 K/uL (0.00-0.40); EOSINOPHILS PERCENT MAN 1 % (2-4); LYMPHOCYTES ABSOLUTE MAN 1.33 K/uL (0.8-3.3); LYMPHOCYTES PERCENT MAN 23 % (24-44); MONOCYTES ABSOLUTE MAN 1.04 K/uL (0.20-0.90); MONOCYTES PERCENT MAN 18 % (2-6); NEUTROPHILS ABSOLUTE MAN 2.09 K/uL (1.0-7.6); PROMYELOCYTE ABSOLUTE MAN 0.35 K/uL; PROMYELOCYTE PERCENT MAN 6 %; SEG NEUTROPHILS PERCENT MAN 36 % (36-66)
[2023-10-28 06:27] LABS: ANISOCYTOSIS MODERATE; TARGET CELLS FEW; TEARDROP CELLS MODERATE
[2023-10-28] MEDS: Pantoprazole 40 MG Tab.CR PO SCH (07:48)
[2023-10-28] MEDS: Potassium Chloride 20 MEQ Tab.ER PO SCH (08:32)
[2023-10-28] MEDS: Fluconazole 150 MG Tab PO SCH (08:33)
[2023-10-28] MEDS: Aspirin 81 MG Tab.EC PO SCH (08:33)
[2023-10-28] MEDS: Citalopram 20 MG Tab PO SCH (08:33)
[2023-10-28] MEDS: Hydrochlorothiazide 12.5 MG Cap PO SCH (08:33)
[2023-10-28] MEDS: Acetaminophen 325 MG Tab PO PRN (17:21)
[2023-10-28] MEDS: Meclizine 25 MG Tab PO PRN (19:42)
[2023-10-29 05:05] LABS: HEMATOCRIT 27.5 % (34.3-46.0); HEMOGLOBIN 8.9 g/dL (11.2-15.5); MEAN CORPUSCULAR HEMOGLOBIN 32.4 pg (31.6-35.5); MEAN CORPUSCULAR HGB CONC 32.4 g/dL (31.6-35.5); PLATELET COUNT,PLT 137 K/uL (130-375); RED BLOOD CELL COUNT 2.75 M/uL (3.77-5.24); WHITE BLOOD CELL COUNT,WBC 16.7 K/uL (3.2-11.0)
[2023-10-29 05:20] LABS: CALCIUM 8.6 mg/dL (8.5-10.1); CREATININE 0.9 mg/dL (0.6-1.0); EST CRCL DRUG DOSING (CG) 47.15 mL/min
[2023-10-29 05:36] LABS: ATYPICAL LYMPHOCYTES FEW; LYMPHOCYTES PERCENT MAN 12 % (24-44); METAMYELOCYTE ABSOLUTE MAN 0.33 K/uL; METAMYELOCYTE PERCENT MAN 2 %; MONOCYTES ABSOLUTE MAN 3.67 K/uL (0.20-0.90); MONOCYTES PERCENT MAN 22 % (2-6); NEUTROPHILS ABSOLUTE MAN 10.02 K/uL (1.0-7.6); PROMYELOCYTE ABSOLUTE MAN 0.67 K/uL; PROMYELOCYTE PERCENT MAN 4 %; SEG NEUTROPHILS PERCENT MAN 60 % (36-66)
[2023-10-29 06:07] VITALS: BP 86/43; PULSE 73
== END 2023-10-29 09:43 | disposition home or self-care (01) | DRG 809 ==
LOC: JP.ED 14:15 → JP.MS 18:00
PROVIDERS: ADMIT Internal Medicine; ATTEND Internal Medicine
DX: D70.9 Neutropenia, unspecified (principal); R44.3 Hallucinations, unspecified; R50.81 Fever presenting with conditions classified elsewhere; C50.919 Malignant neoplasm of unspecified site of unspecified female breast; I10 Essential (primary) hypertension; K59.09 Other constipation; M19.90 Unspecified osteoarthritis, unspecified site; G43.909 Migraine, unspecified, not intractable, without status migrainosus; F41.9 Anxiety disorder, unspecified; F32.A Depression, unspecified; E87.6 Hypokalemia; Z79.82 Long term (current) use of aspirin; Z79.899 Other long term (current) drug therapy; Z88.8 Allergy status to other drugs, medicaments and biological substances; Z79.2 Long term (current) use of antibiotics; Z87.81 Personal history of (healed) traumatic fracture; Z86.73 Personal history of transient ischemic attack (TIA), and cerebral infarction without residual deficits; Z98.890 Other specified postprocedural states; Z90.10 Acquired absence of unspecified breast and nipple
CPT/HCPCS: 0241U; 36415; 70450; 80048; 80053; 81001; 83605; 84145; 85025; 86140; 87040; 87086; 96365; 99222; 99232; 99238; 99285; 99285-25; A9270-GY; J0692; J3490; J7030